=== PATIENT | female | born 1970 | race Caucasian/White ===

== ENCOUNTER 2017-10-14 06:08 | Day surgery (SDC) | payer MEDICARE, MEDICAID ==
[2017-10-14] MEDS ORDERED: Lactated Ringers 1,000 ML IV SCH (06:30)
[2017-10-14] MEDS ORDERED: Bupivacaine 0.5%/EPINEPHrine 1:200,000 50 ML MDV ONE (07:18)
[2017-10-14] MEDS ORDERED: fentaNYL 100 MCG/2 ML SDV ONE (07:20)
[2017-10-14] MEDS ORDERED: Midazolam 1 MG/ML 2 ML SDV ONE (07:20)
[2017-10-14] MEDS ORDERED: Propofol 200 MG/20 ML SDV ONE ×2 (07:20→07:54)
[2017-10-14] MEDS ORDERED: Acetaminophen/HYDROcodone 325-5 MG Tab PO PRN (09:05)
== END 2017-10-14 10:09 | disposition home or self-care (01) ==
LOC: JP.SDS 06:08
PROVIDERS: ATTEND Obstetrics & Gynecology
DX: N92.0 Excessive and frequent menstruation with regular cycle (principal); I10 Essential (primary) hypertension; E78.5 Hyperlipidemia, unspecified; Z79.899 Other long term (current) drug therapy; Z88.0 Allergy status to penicillin; Z88.2 Allergy status to sulfonamides; Z88.8 Allergy status to other drugs, medicaments and biological substances
CPT/HCPCS: 36415; 58563; 81025; 86850; 86900; 86901; A9270; J2250; J2704; J3010; J7120

== ENCOUNTER 2019-10-23 19:23 | Emergency (ER) | payer MEDICARE, MEDICAID ==
[2019-10-23] MEDS ORDERED: Lactated Ringers 1,000 ML IV ONE (20:22)
[2019-10-23] MEDS ORDERED: Sodium Chloride 0.9% 10 ML Syringe FLUSH PRN (20:22)
[2019-10-23] MEDS ORDERED: Prochlorperazine 10 MG/2 ML SDV IVPUSH ONE (20:22)
[2019-10-23] MEDS ORDERED: diphenhydrAMINE 50 MG/ML SDV IVPUSH ONE (20:22)
[2019-10-23] MEDS ORDERED: Ketorolac 30 MG/ML SDV IVPUSH ONE (20:23)
--- NOTE | 2019-10-23 20:25 | EDM.PDOC ---
ED HPI GENERAL MEDICAL PROBLEM - General Chief Complaint: Headache Stated Complaint: MIGRAINE,DIZZY Time Seen by Provider: 10/23/19 20:15 Source of Information: Reports: Patient, Family, RN Notes Reviewed History Limitations: Reports: No Limitations - History of Present Illness INITIAL COMMENTS - FREE TEXT/NARRATIVE: 49-year-old female presents emergency department with a complaint of a headache , she states had headache for last 4 days felt dizzy nauseated with photophobia does have a remote history of migraines she states this feels similar she has no difficulty walking Treatments HARDWOOD FINISHER: Reports: Other (see below) Other Treatments HARDWOOD FINISHER: none Headache Pain Score (Numeric/FACES): 6 - Related Data Allergies Allergy/AdvReac Type Severity Reaction Status Date / Time etanercept [From Enbrel] Allergy Swelling Verified 10/23/19 20:03 lisinopril Allergy Other Verified 10/23/19 20:03 oxycodone Allergy Hypotension Verified 10/23/19 20:03 Penicillins Allergy Other Verified 10/23/19 20:03 Sulfa (Sulfonamide Allergy Other Verified 10/23/19 20:03 Antibiotics) Home Meds: Home Meds Acetaminophen/HYDROcodone [[place] 325-5 MG] 1 - 2 tab PO Q4H PRN 01/10/17 [ History] Tofacitinib Citrate [Xeljanz] 5 mg PO BID 01/10/17 [History] atorvaSTATin [Lipitor] 20 mg PO BEDTIME 01/10/17 [History] Cyclobenzaprine [Flexeril] 30 mg PO BEDTIME 10/10/17 [History] Potassium Chloride 10 meq PO DAILY 10/10/17 [History] Gabapentin [Neurontin] 1,200 mg PO BEDTIME 06/30/18 [History] Omeprazole Magnesium [Prilosec Otc] 20 mg PO DAILY 06/30/18 [History] Ondansetron [Zofran] 8 mg PO Q8H PRN 06/30/18 [History] traMADol [Ultram] 50 mg PO QID 06/30/18 [History] ALPRAZolam [Alprazolam ER] 0.5 mg PO BEDTIME 10/23/19 [History] Estradiol [Estrace] 1 mg PO DAILY 10/23/19 [History] Triamterene/Hydrochlorothiazid [Triamterene-HCTZ 37.5-25 MG] 1 each PO DAILY 03/06 [History] Past Medical History HEENT History: Reports: Hard of Hearing, Impaired Vision, Otitis Media Cardiovascular History: Reports: High Cholesterol, Hypertension Gastrointestinal History: Reports: GERD ROOM ATTENDANTS History: Reports: Dysfunctional Uterine Bleeding, Neurological History: Reports: Migraines - Infectious Disease History Infectious Disease History: Reports: Chicken Pox - Past Surgical History Head Surgeries/Procedures: Reports: None HEENT Surgical History: Reports: Oral Surgery Cardiovascular Surgical History: Reports: None Respiratory Surgical History: Reports: None Female Surgical History: Reports: None Endocrine Surgical History: Reports: None Musculoskeletal Surgical History: Reports: Arthroscopic Knee, Hip Replacement, Other (See Below) Oncologic Surgical History: Reports: None Dermatological Surgical History: Reports: None Social & Family History - Family History Family Medical History: Noncontributory - Tobacco Use Smoking Status *Q: Never Smoker Second Hand Smoke Exposure: No - Caffeine Use Caffeine Use: Reports: Coffee - Recreational Drug Use Recreational Drug Use: No ED ROS GENERAL - Review of Systems Review Of Systems: See Below Constitutional: Denies: Fever, Chills HEENT: Reports: Eye Pain Respiratory: Reports: No Symptoms Cardiovascular: Reports: No Symptoms GI/Abdominal: Reports: Nausea. Denies: Vomiting : Reports: No Symptoms Musculoskeletal: Reports: No Symptoms Skin: Reports: No Symptoms Neurological: Reports: Dizziness, Headache - Physical Exam Exam: See Below Exam Limited By: No Limitations General Appearance: Alert, WD/WN, No Apparent Distress Eye Exam: Bilateral Eye: EOMI, Normal Fundi, Normal Inspection, PERRL Neck: Normal Inspection, Supple, Non-Tender, Full Range of Motion Respiratory/Chest: No Respiratory Distress, Lungs Clear, Normal Breath Sounds, No Accessory Muscle Use, Chest Non-Tender Cardiovascular: Regular Rate, Rhythm, No Murmur GI/Abdominal: Soft, Non-Tender Course - Vital Signs Last Recorded V/S: Last Vital Signs Temp 97.0 F 10/23/19 19:40 Pulse 102 H 10/23/19 21:27 Resp 14 10/23/19 20:10 BP 119/90 10/23/19 21:27 Pulse Ox 95 10/23/19 20:10 - Orders/Labs/Meds Orders: Active Orders 24 hr Category Date Time Status Peripheral IV Care [RC] . DIRECTED Care 10/23/19 20:23 Active Sodium Chloride 0.9% [Saline Flush] Med 10/23/19 20:22 Active 10 ml FLUSH ASDIRECTED PRN Peripheral IV Insertion Adult [OM.PC] Urgent Oth 10/23/19 20:21 Ordered Medication Orders Sodium Chloride (Saline Flush) 10 ml FLUSH ASDIRECTED PRN PRN Reason: Keep Vein Open Meds: Medications Generic Name Dose Route Start Last Admin Trade Name Freq PRN Reason Stop Dose Admin Sodium Chloride 10 ml 10/23/19 20:22 Saline Flush FLUSH ASDIRECTED PRN Keep Vein Open Discontinued Medications Generic Name Dose Route Start Last Admin Trade Name Freq PRN Reason Stop Dose Admin Diphenhydramine HCl 50 mg 10/23/19 20:22 10/23/19 20:43 Benadryl IVPUSH 10/23/19 20:23 50 mg ONETIME ONE Administration Lactated Ringer's 1,000 mls @ 999 mls/hr 10/23/19 20:22 10/23/19 20:42 Ringers, Lactated IV 10/23/19 21:22 999 mls/hr BOLUS ONE Administration Ketorolac Tromethamine 30 mg 10/23/19 20:23 10/23/19 20:48 Toradol IVPUSH 10/23/19 20:24 30 mg ONETIME ONE Administration Prochlorperazine Edisylate 5 mg 10/23/19 20:22 10/23/19 20:45 Compazine IVPUSH 10/23/19 20:23 5 mg ONETIME ONE Administration Departure - Departure Time of Disposition: 21:40 Disposition: Home, Self-Care 01 Condition: Fair Clinical Impression: Migraine - Discharge Information Instructions: Migraine Headache, [id number] Referrals: Oscar Lyon MD [Primary Care Provider] - Forms: ED Department Discharge Additional Instructions: Continue with regular medications, please followup with your primary care provider in 3-5 days if not better, please call return to the emergency department with worsening of symptoms. Sepsis Event Note - Evaluation Sepsis Screening Result: No Definite Risk - Focused Exam Vital Signs: Vital Signs Temp Pulse Resp BP Pulse Ox 10/23/19 21:27 102 H 119/90 10/23/19 20:10 124 H 14 128/93 H 95 10/23/19 20:09 123 H 128/93 H 95 10/23/19 19:40 97.0 F 137 H 16 145/97 H 95 Date Exam was Performed: 10/23/19 Time Exam was Performed: 21:40 - My Orders Last 24 Hours: My Active Orders 10/23/19 20:21 Peripheral IV Insertion Adult [OM.PC] Urgent 10/23/19 20:22 Sodium Chloride 0.9% [Saline Flush] 10 ml FLUSH ASDIRECTED PRN 10/23/19 20:23 Peripheral IV Care [RC] . DIRECTED - Assessment/Plan Last 24 Hours: My Active Orders 10/23/19 20:21 Peripheral IV Insertion Adult [OM.PC] Urgent 10/23/19 20:22 Sodium Chloride 0.9% [Saline Flush] 10 ml FLUSH ASDIRECTED PRN 10/23/19 20:23 Peripheral IV Care [RC] . DIRECTED Plan: Assessment Acuity = acute Site and laterality = migraine type headache without aura Etiology = unknown Manifestations = none Location of injury = Home Lab values = none Plan Good improvement combination Toradol, Compazine, Benadryl 1 L fluids, plan is discharged home follow-up primary care 3 to 5 days if not better This note was dictated using [employer] recognition software please call with any questions on syntax or grammar.
== END 2019-10-23 21:50 | disposition home or self-care (01) ==
LOC: JP.ED 19:23
DX: G43.009 Migraine without aura, not intractable, without status migrainosus (principal); I10 Essential (primary) hypertension; K21.9 Gastro-esophageal reflux disease without esophagitis; Z79.899 Other long term (current) drug therapy; Z98.890 Other specified postprocedural states; Z88.0 Allergy status to penicillin; Z88.2 Allergy status to sulfonamides; Z88.6 Allergy status to analgesic agent; Z88.8 Allergy status to other drugs, medicaments and biological substances
CPT/HCPCS: 96361; 96374; 96375; 99283; 99284; J0780; J1200; J1885; J7120

== ENCOUNTER 2021-01-06 02:27 | Emergency (ER) | payer MEDICARE, MEDICAID ==
[2021-01-06] MEDS ORDERED: Bacitracin Oint 1 GM U/D Packet TOP ONE (03:09)
[2021-01-06] MEDS ORDERED: Lidocaine 1% with EPINEPHrine 1:100,000 50 ML MDV INFILT STA (03:09)
--- NOTE | 2021-01-06 03:22 | EDM.PDOC ---
ED HPI GENERAL MEDICAL PROBLEM - General Chief Complaint: Syncope Stated Complaint: PASSED OUT/MEDICAL Time Seen by Provider: 01/06/21 03:01 Source of Information: Reports: Patient, Old Records History Limitations: Reports: No Limitations - History of Present Illness INITIAL COMMENTS - FREE TEXT/NARRATIVE: Mendy is a 50-year-old female presenting to the ED with multiple complaints including an episode of syncope that occurred when she was knocking on her daughter's door and passed out striking her face either on the door handle or the floor causing a laceration above her right eyebrow and lower lip. The patient was unconscious for a short period of time but now is complaining of a headache and neck pain. Patient does have recent history of work-up both that [place] and [facility] in [place] for syncope. She is undergoing a extensive evaluation for abnormal pulmonary function tests, dyspnea on exertion, class II severe obesity, essential hypertension and mixed hyperlipidemia. She does have a history significant for coronary artery disease and gets chest pain 1-3 times per week. She had a left heart cath that showed nonobstructive coronary disease. She has legally blind in both eyes. Her fall today resulted in a 3.6 cm laceration above the right eyebrow. There is no active bleeding at this time. Right Face/Facial Pain Score (Numeric/FACES): 9 - Related Data Allergies Allergy/AdvReac Type Severity Reaction Status Date / Time clindamycin Allergy Diarrhea Verified 01/06/21 02:45 etanercept [From Enbrel] Allergy Swelling Verified 10/24/20 09:29 hydrocodone Allergy Vomiting Verified 01/06/21 02:45 lisinopril Allergy Other Verified 10/24/20 09:29 oxycodone Allergy Hypotension Verified 10/24/20 09:29 Penicillins Allergy Other Verified 10/24/20 09:29 Sulfa (Sulfonamide Allergy Other Verified 10/24/20 09:29 Antibiotics) Home Meds: Home Meds atorvaSTATin [Lipitor] 20 mg PO BEDTIME 01/10/17 [History] Cyclobenzaprine [Flexeril] 10 mg PO BEDTIME 10/10/17 [History] Potassium Chloride 20 meq PO DAILY 10/10/17 [History] Gabapentin [Neurontin] 1,200 mg PO BEDTIME 06/30/18 [History] Omeprazole Magnesium [Prilosec Otc] 40 mg PO DAILY 06/30/18 [History] traMADol [Ultram] 50 mg PO QID PRN 06/30/18 [History] ALPRAZolam [Alprazolam ER] 1.5 mg PO TID 10/23/19 [History] estradioL [Estrace] 1 mg PO DAILY 10/23/19 [History] Aspirin [Halfprin] 81 mg PO DAILY 10/23/20 [History] Promethazine [Phenergan] 25 mg PO Q6HR PRN 10/23/20 [History] Venlafaxine [Effexor] 75 mg PO BID 10/23/20 [History] amLODIPine Besylate [Norvasc] 2.5 mg PO DAILY 10/23/20 [History] Verapamil [Calan SR] 240 mg PO BEDTIME 10/24/20 [History] Rizatriptan [Maxalt MINES SAFETY ENGINEER] 1 tab SL ASDIRECTED 01/06/21 [History] Past Medical History HEENT History: Reports: Hard of Hearing, Impaired Vision, Otitis Media Other HEENT History: legally deaf and blind Cardiovascular History: Reports: Arrhythmia, CAD, High Cholesterol, Hypertension, Syncope, Other (See Below) Other Cardiovascular History: 2 mildly leaky valves Respiratory History: Reports: None, Sleep Apnea, SOB, Other (See Below) Other Respiratory History: calcifications lung nodules throughout lungs, pt does have home oxygen for at night Gastrointestinal History: Reports: GERD Genitourinary History: Reports: None CONTENT EDITOR History: Reports: Dysfunctional Uterine Bleeding, Musculoskeletal History: Reports: None, Fibromyalgia, Osteoarthritis, RA, Other (See Below) Neurological History: Reports: Migraines Psychiatric History: Reports: Anxiety, Depression Endocrine/Metabolic History: Reports: Hypokalemia, Obesity/BMI 30+ Hematologic History: Reports: None Immunologic History: Reports: None Oncologic (Cancer) History: Reports: None Dermatologic History: Reports: None - Infectious Disease History Infectious Disease History: Reports: C-Difficile, Chicken Pox, Influenza, MRSA - Past Surgical History Head Surgeries/Procedures: Reports: None HEENT Surgical History: Reports: Oral Surgery Cardiovascular Surgical History: Reports: None, Other (See Below) Other Cardiovascular Surgeries/Procedures: angiogram, Respiratory Surgical History: Reports: None GI Surgical History: Reports: None Female Surgical History: Reports: None, Hysterectomy, Oophorectomy, Salpingo- Oophorectomy Endocrine Surgical History: Reports: None Neurological Surgical History: Reports: None Musculoskeletal Surgical History: Reports: Arthroscopic Knee, Hip Replacement, Other (See Below) Other Musculoskeletal Surgeries/Procedures:: surgery right ankle left hip01/2018 bunion right04/2018 Oncologic Surgical History: Reports: None Dermatological Surgical History: Reports: None Social & Family History - Family History Family Medical History: No Pertinent Family History - Tobacco Use Tobacco Use Status *Q: Never Tobacco User - Caffeine Use Caffeine Use: Reports: Soda - Recreational Drug Use Recreational Drug Use: No ED ROS GENERAL - Review of Systems Review Of Systems: See Below Constitutional: Reports: No Symptoms HEENT: Reports: Vision Change (Patient is legally blind), Other (Laceration above the right eyebrow) Respiratory: Reports: No Symptoms Cardiovascular: Reports: Syncope Endocrine: Reports: No Symptoms GI/Abdominal: Reports: No Symptoms : Reports: No Symptoms Musculoskeletal: Reports: No Symptoms Skin: Reports: Wound (Laceration above the right eyebrow) Neurological: Reports: Syncope Psychiatric: Reports: No Symptoms Hematologic/Lymphatic: Reports: No Symptoms Immunologic: Reports: No Symptoms - Physical Exam Exam: See Below Exam Limited By: No Limitations General Appearance: Alert, Mild Distress Eye Exam: Bilateral Eye: Other (There is a 3.6 cm laceration above the right eyebrow that it widely gapes and goes through the dermis, epidermis, muscular layer down to the skull.) Nose: Other (Abrasion on the bridge of the nose.). No: Nasal Deformity, Nasal Swelling Throat/Mouth: Normal Inspection, Normal Lips, Normal Oropharynx, Normal Voice Head Exam: Facial Lacerations Neck: Normal Inspection, Tender Lateral. No: Tender Midline Respiratory/Chest: No Respiratory Distress, Lungs Clear Cardiovascular: Normal Peripheral Pulses, Regular Rate, Rhythm GI/Abdominal: Normal Bowel Sounds, Soft, Non-Tender Neuro Exam (Abbreviated): Alert, Oriented, Normal Cognition, No Motor/Sensory Deficits Extremities: Normal Inspection Psychiatric: Normal Affect, Normal Mood Skin Exam: Warm, Dry ED PROCEDURES - Laceration/Wound Repair Left Upper Brow Lac/wound length in cm: 3.6 Appearance: Muscle Anesthetic Type: Local Local Anesthesia - Lidocaine (Xylocaine): 1% with EPI Local Anesthetic Volume: 3cc Skin Prep: Saline Exploration/Debridement/Repair: Wound Explored, In a Bloodless Field, Explored to Base Suture Size: 4-0 # of Sutures: 9 Suture Type: Nylon, Interrupted # of Sutures: 3 Suture Size: 4-0 # of Sutures: 3 Repaired with: Vicryl Tetanus Status Addressed: Yes Complications: No #1 Interpretation EKG Date: 01/06/21 Time: 03:21 Rhythm: NSR Rate (Beats/Min): 84 [place]: Normal P-Wave: Present QRS: Other (LVH by voltage criteria) ST-T: Normal (Nonspecific ST-T changes) QT: Normal Comparison: NA - No Prior EKG Course - Vital Signs Last Recorded V/S: Last Vital Signs Temp 36.6 C 01/06/21 02:58 Pulse 89 01/06/21 02:58 Resp 20 01/06/21 02:58 BP 120/81 01/06/21 02:58 Pulse Ox 97 01/06/21 02:58 - Orders/Labs/Meds Orders: Active Orders 24 hr Category Date Time Status EKG Documentation Completion [RC] ASDIRECTED Care 01/06/21 03:11 Active Vaccines to be Administered [RC] PER UNIT ROUTINE Care 01/06/21 04:25 Active EKG 12 Lead [EK] Routine Ther 01/06/21 03:11 Ordered Labs: Laboratory Tests 01/06/21 01/06/21 Range/Units 03:20 03:20 WBC 10.7 (4.5-11.0) K/uL RBC 4.30 (3.30-5.50) M/uL Hgb 10.5 L (12.0-15.0) g/dL Hct 34.0 L (36.0-48.0) % MCV 79 L (80-98) fL MCH 24 L (27-31) pg MCHC 31 L (32-36) % Plt Count 385 (150-400) K/uL Neut % (Auto) 74.3 H (36-66) % Lymph % (Auto) 16.3 L (24-44) % Harvey % (Auto) 7.3 H (2-6) % Eos % (Auto) 1.4 L (2-4) % Baso % (Auto) 0.7 (0-1) % Sodium 144 (140-148) mmol/L Potassium 3.3 L (3.6-5.2) mmol/L Chloride 103 (100-108) mmol/L Carbon Dioxide 30 (21-32) mmol/L Anion Gap 14.3 H (5.0-14.0) mmol/L BUN 14 (7-18) mg/dL Creatinine 1.1 H (0.6-1.0) mg/dL Est Cr Clr Drug Dosing 61.72 mL/min Estimated GFR (MDRD) 53 L (>60) Glucose 127 H (74-106) mg/dL Calcium 8.3 L (8.5-10.1) mg/dL Total Bilirubin 0.3 (0.2-1.0) mg/dL AST 15 (15-37) U/L ALT 21 (12-78) U/L Alkaline Phosphatase 146 H (46-116) U/L Troponin I < 0.017 (0.000-0.056) ng/mL Total Protein 7.0 (6.4-8.2) g/dL Albumin 2.6 L (3.4-5.0) g/dL Globulin 4.4 H (2.3-3.5) g/dL Albumin/Globulin Ratio 0.6 L (1.2-2.2) Meds: Medications Discontinued Medications Generic Name Dose Route Start Last Admin Trade Name Freq PRN Reason Stop Dose Admin Bacitracin 1 dose 01/06/21 03:09 01/06/21 03:21 Bacitracin Oint 1 Gm U/D Packet TOP 01/06/21 03:10 1 dose ONETIME ONE Administration Diphtheria/Tetanus/Acell Pertussis 0.5 ml 01/06/21 04:25 01/06/21 04:36 Diphtheria,Pertussis(Acell),Tetanus Vaccine 0.5 Ml Syringe IM 01/06/21 04:26 0.5 ml .ONCE ONE Administration Lidocaine/Epinephrine 5 ml 01/06/21 03:09 01/06/21 03:22 Lidocaine 1% With Epinephrine 1:100,000 50 Ml Mdv INFILT 01/06/21 03:10 5 ml ONETIME STA Administration Potassium Chloride 40 meq 01/06/21 04:28 01/06/21 04:37 Potassium Chloride 20 Meq Tab.Er PO 01/06/21 04:29 40 meq ONETIME ONE Administration - Radiology Interpretation Free Text/Narrative:: The CT of the head without contrast showing no acute intracranial abnormalities including no evidence for hemorrhage, mass, or midline shift. There is no evidence for cranial abnormality ruling out any acute fracture. This was confirmed by report from radiology. I reviewed the CT of the cervical spine showing degenerative changes at C4/C5 causing loss of lordosis. There is no evidence for acute fracture or malalignment otherwise noted. - Re-Assessments/Exams Free Text/Narrative Re-Assessment/Exam: 01/06/21 04:30 reviewed the patient's labs showing hemoglobin of 10.5 with hematocrit of 34. She has normal leukocyte count. Her comprehensive metabolic panel is significant for a potassium of 3.3 and a creatinine of 1.1. She still showing evidence for stage IIIa chronic kidney disease with a calculated GFR of 53. On and is negative at less than 0.017. We will give her some K-Kita 40 mEq by mouth for her hypokalemia. Her EKG is unremarkable for any significant abnormalities except for left ventricular hypertrophy by voltage criteria. Her tetanus was out of date so we booster that with a Tdap today. 01/06/21 06:[address] of the brain without contrast demonstrating no acute intracranial abnormalities including hemorrhage, mass, or midline shift. The CT of the cervical spine showed degenerative changes at C4- C5 but no evidence for acute abnormalities. At this time, I believe the patient is suitable for discharge in satisfactory condition. Couple episode was likely vasovagal in nature. Patient should continue to remain well-hydrated to lessen the recurrence of this. We were able to close the wound on the right eyebrow using a 2 layer approach. She will need to have the sutures removed in 5 to 7 days which can be done at her primary care provider's office. She should apply light coating of bacitracin to the wound twice daily for the next 5 days. Indications return to the ED were discussed and she was discharged in satisfactory condition. Departure - Departure Time of Disposition: 06:05 Disposition: Home, Self-Care 01 Clinical Impression: Vasovagal syncope, Neck pain Laceration of right eyebrow Qualifiers: Encounter type: initial encounter Qualified Code(s): S01.111A - Laceration without foreign body of right eyelid and periocular area, initial encounter Closed head injury Qualifiers: Encounter type: initial encounter Qualified Code(s): S09.90XA - Unspecified injury of head, initial encounter - Discharge Information Instructions: Head Injury, Adult, Syncope, [id number], Laceration Care, Adult, [id number], Facial Laceration Referrals: Oscar Lyon MD [Primary Care Provider] - Forms: ED Department Discharge Care Plan Goals: Your work-up today has suggested that your episode of syncope (blacking out) was likely due to a sudden drop in your blood pressure called vasovagal syncope. I have enclosed information concerning this. I recommend making sure that she remain well-hydrated as this will lessen the likelihood of recurrence of this. Your labs today were remarkable for chronic kidney disease stage IIIa and low potassium which we replaced while in the ER. Your CT of the head and cervical spine were unremarkable for any acute significant changes but it did show significant degenerative changes in the middle of your cervical spine likely due to arthritis. Please keep your wound clean and dry especially over the next 24 hours until the scab forms. The sutures will need to be removed from the skin in 5 to 7 days which can be done at your primary care provider's office. Apply a light coating of bacitracin to the wound twice a day which will lessen the scar and prevent infection. You will likely have a headache for a day or 2 due to the closed head injury otherwise known as concussion. I recommend taking it easy until your headache subsides. Sepsis Event Note (ED) - Evaluation Sepsis Screening Result: No Definite Risk - Focused Exam Vital Signs: Vital Signs Temp Pulse Resp BP Pulse Ox 01/06/21 02:58 36.6 C 89 20 120/81 97 01/06/21 02:56 36.6 C 89 20 120/81 97 - Problem List & Annotations (1) Closed head injury SNOMED Code(s): 813729847384 Code(s): S09.90XA - UNSPECIFIED INJURY OF HEAD, INITIAL ENCOUNTER Status: Acute Priority: High Current Visit: Yes Qualifiers: Encounter type: initial encounter Qualified Code(s): S09.90XA - Unspecified injury of head, initial encounter (2) Laceration of right eyebrow SNOMED Code(s): 92743227321521088 Code(s): S01.111A - LACERATION W/O FB OF RIGHT EYELID AND PERIOCULAR AREA, INIT Status: Acute Priority: High Current Visit: Yes Qualifiers: Encounter type: initial encounter Qualified Code(s): S01.111A - Laceration without foreign body of right eyelid and periocular area, initial encounter (3) Neck pain SNOMED Code(s): 07463660 Code(s): M54.2 - CERVICALGIA Status: Acute Priority: High Current Visit: Yes (4) Vasovagal syncope SNOMED Code(s): 647174373 Code(s): R55 - SYNCOPE AND COLLAPSE Status: Acute Priority: High Current Visit: Yes - Problem List Review Problem List Initiated/Reviewed/Updated: Yes - My Orders Last 24 Hours: My Active Orders 01/06/21 03:11 EKG Documentation Completion [RC] ASDIRECTED EKG 12 Lead [EK] Routine 01/06/21 04:25 Vaccines to be Administered [RC] PER UNIT ROUTINE - Assessment/Plan Last 24 Hours: My Active Orders 01/06/21 03:11 EKG Documentation Completion [RC] ASDIRECTED EKG 12 Lead [EK] Routine 01/06/21 04:25 Vaccines to be Administered [RC] PER UNIT ROUTINE
[2021-01-06] MEDS ORDERED: Diphtheria,Pertussis(Acell),Tetanus Vaccine 0.5 ML Syringe IM ONE (04:25)
[2021-01-06] MEDS ORDERED: Potassium Chloride 20 MEQ Tab.ER PO ONE (04:28)
--- NOTE | 2021-01-06 05:56 | CRLCT ---
Indication: Head injury, syncope, trauma when hitting the floor. Comparison: None available. Technique: Multiple sequential axial images from the foramen magnum to the vertex were obtained without IV contrast. Findings: No skull fracture. No evidence of mass effect, midline shift, or extra-axial fluid collection. No evidence of space-occupying lesion or intracranial hemorrhage. No evidence of cortical-based area of infarction. Ventricles and sulci are appropriate for patient age. Basal cisterns are patent. Minimal secretions in the ethmoid air cells. Opacities in the external auditory canal bilaterally presumably represents cerumen. Impression: No acute intracranial process. Please note that all CT scans at this facility use dose modulation, iterative reconstruction, and/or weight-based dosing when appropriate to reduce radiation dose to as low as reasonably achievable. Dictated by Michael Jacobo MD @ 01/06/2021 5:48:24 AM (Electronically Signed)
--- NOTE | 2021-01-06 05:58 | CRLCT ---
Indication: Neck pain after fall. Syncopal episode, and hit the floor. Technique: Contiguous axial images from the skull base through the superior mediastinum were obtained with coronal and sagittal reformations. No IV contrast was administered. Comparison: None available. Findings: No acute fracture of the cervical spine. Multilevel mild degenerative change most notably at C4 through C7. Minimal (2 mm) anterolisthesis of C4 on C5. Soft tissues appear unremarkable. Mild reversal of the normal lordotic curvature. Atlantooccipital articulation is normal. Lateral masses appear normally aligned. Pre-dental space appears normal. Impression: No acute fracture of the cervical spine. Minimal anterolisthesis of C4 on C5 which is favored to be degenerative in etiology, however correlate with symptoms to determine if further evaluation would be warranted. Please note that all CT scans at this facility use dose modulation, iterative reconstruction, and/or weight-based dosing when appropriate to reduce radiation dose to as low as reasonably achievable. Dictated by Michael Jacobo MD @ 01/06/2021 5:55:13 AM (Electronically Signed)
== END 2021-01-06 06:24 | disposition home or self-care (01) ==
LOC: JP.ED 02:27
DX: S01.111A Laceration without foreign body of right eyelid and periocular area, initial encounter (principal); S09.90XA Unspecified injury of head, initial encounter; M54.2 Cervicalgia; R55 Syncope and collapse; I25.10 Atherosclerotic heart disease of native coronary artery without angina pectoris; E78.00 Pure hypercholesterolemia, unspecified; I10 Essential (primary) hypertension; K21.9 Gastro-esophageal reflux disease without esophagitis; M06.9 Rheumatoid arthritis, unspecified; E66.9 Obesity, unspecified; Z68.39 Body mass index [BMI] 39.0-39.9, adult; Z88.1 Allergy status to other antibiotic agents; Z88.5 Allergy status to narcotic agent; Z88.8 Allergy status to other drugs, medicaments and biological substances; Z88.0 Allergy status to penicillin; Z88.2 Allergy status to sulfonamides; Z79.899 Other long term (current) drug therapy; Z23 Encounter for immunization; W22.8XXA Striking against or struck by other objects, initial encounter
CPT/HCPCS: 12052; 36415; 70450; 72125; 80053; 84484; 85025; 90471; 90715; 93005; 99284; A9270

== ENCOUNTER 2021-08-20 15:03 | Emergency (ER) | payer MEDICARE, MEDICAID ==
[2021-08-20] MEDS ORDERED: EPINEPHrine 1 MG/ML SDV IM ONE (15:37)
[2021-08-20] MEDS ORDERED: Ondansetron 4 MG/2 ML SDV IVPUSH ONE (15:39)
--- NOTE | 2021-08-20 15:41 | EDM.PDOC ---
ED HPI GENERAL MEDICAL PROBLEM - General Stated Complaint: ALLERGIC REACTION Time Seen by Provider: 08/20/21 15:23 Source of Information: Reports: Patient, Provider, RN Notes Reviewed History Limitations: Reports: No Limitations - History of Present Illness INITIAL COMMENTS - FREE TEXT/NARRATIVE: 51-year-old female presents emergency department today for an allergic reaction, she was at the infusion center receiving a dose of Remicade she did have a similar reaction last year however this year was given a dose about 2 weeks ago seem to work well for her at this particular dose she received 15 mL of the 250 mL dose started having reaction shortness of breath chest tightness difficulty swallowing was given Solu-Cortef, Benadryl, Pepcid, Zyrtec taken to the emergency department for further evaluation still feels nauseated Chest Pain Score (Numeric/FACES): 4 - Related Data Allergies Allergy/AdvReac Type Severity Reaction Status Date / Time etanercept [From Enbrel] Allergy Swelling Verified 08/20/21 16:09 lisinopril Allergy Other Verified 08/20/21 16:09 oxycodone Allergy Hypotension Verified 08/20/21 16:09 Penicillins Allergy Other Verified 08/20/21 16:09 Sulfa (Sulfonamide Allergy Other Verified 08/20/21 16:09 Antibiotics) clindamycin AdvReac Diarrhea Verified 08/20/21 16:09 hydrocodone AdvReac Vomiting Verified 08/20/21 16:09 Home Meds: Home Meds atorvaSTATin [Lipitor] 20 mg PO BEDTIME 01/10/17 [History] Cyclobenzaprine [Flexeril] 10 mg PO BEDTIME 10/10/17 [History] Potassium Chloride 10 meq PO DAILY 10/10/17 [History] Gabapentin [Neurontin] 1,200 mg PO BEDTIME 06/30/18 [History] Omeprazole Magnesium [Prilosec Otc] 40 mg PO DAILY 06/30/18 [History] traMADol [Ultram] 50 mg PO QID PRN 06/30/18 [History] ALPRAZolam [Alprazolam ER] 1 mg PO BEDTIME 10/23/19 [History] Aspirin [Halfprin] 81 mg PO DAILY 10/23/20 [History] Promethazine [Phenergan] 25 mg PO Q6HR PRN 10/23/20 [History] Venlafaxine [Effexor] 75 mg PO BID 10/23/20 [History] amLODIPine Besylate [Norvasc] 2.5 mg PO DAILY 10/23/20 [History] Verapamil [Calan SR] 240 mg PO BEDTIME 10/24/20 [History] HCTZ/Triamterene [Maxzide 25-37.5 MG] 1 tab PO DAILY 07/16/21 [History] Past Medical History HEENT History: Reports: Hard of Hearing, Impaired Vision, Otitis Media Other HEENT History: legally deaf and blind Cardiovascular History: Reports: Arrhythmia, CAD, High Cholesterol, Hypertension, Syncope, Other (See Below) Other Cardiovascular History: 2 mildly leaky valves Respiratory History: Reports: Sleep Apnea, SOB, Other (See Below) Other Respiratory History: calcifications lung nodules throughout lungs, pt does have home oxygen for at night Gastrointestinal History: Reports: GERD [employer] History: Reports: Dysfunctional Uterine Bleeding, Musculoskeletal History: Reports: Fibromyalgia, Osteoarthritis, RA, Other (See Below) Neurological History: Reports: Migraines Psychiatric History: Reports: Anxiety, Depression Endocrine/Metabolic History: Reports: Hypokalemia, Obesity/BMI 30+ Hematologic History: Reports: None Immunologic History: Reports: None Oncologic (Cancer) History: Reports: None Dermatologic History: Reports: None - Infectious Disease History Infectious Disease History: Reports: C-Difficile, Chicken Pox, Influenza, MRSA - Past Surgical History Head Surgeries/Procedures: Reports: None HEENT Surgical History: Reports: Oral Surgery Cardiovascular Surgical History: Reports: None, Other (See Below) Other Cardiovascular Surgeries/Procedures: angiogram, Respiratory Surgical History: Reports: None GI Surgical History: Reports: None Female Surgical History: Reports: None, Hysterectomy, Oophorectomy, Salpingo-Oophorectomy Endocrine Surgical History: Reports: None Neurological Surgical History: Reports: None Musculoskeletal Surgical History: Reports: Arthroscopic Knee, Hip Replacement, Other (See Below) Other Musculoskeletal Surgeries/Procedures:: surgery right ankle left hip01/2018 bunion right04/2018 Oncologic Surgical History: Reports: None Dermatological Surgical History: Reports: None Social & Family History - Family History Family Medical History: No Pertinent Family History - Caffeine Use Caffeine Use: Reports: Soda ED ROS GENERAL - Review of Systems Review Of Systems: See Below Constitutional: Reports: No Symptoms HEENT: Reports: Throat Pain, Throat Swelling Respiratory: Reports: Shortness of Breath Cardiovascular: Reports: Chest Pain, Dyspnea on Exertion GI/Abdominal: Reports: Nausea ED EXAM, GENERAL - Physical Exam Exam: See Below Exam Limited By: No Limitations General Appearance: Alert, WD/WN, No Apparent Distress Throat/Mouth: Normal Inspection, Normal Lips, Normal Teeth, Normal Gums, Normal Oropharynx, Normal Voice, No Airway Compromise Respiratory/Chest: No Respiratory Distress, Lungs Clear, Normal Breath Sounds, No Accessory Muscle Use, Chest Non-Tender Cardiovascular: Regular Rate, Rhythm, No Murmur GI/Abdominal: Soft, Non-Tender Course - Vital Signs Last Recorded V/S: Last Vital Signs Temp 98.2 F 08/20/21 15:25 Pulse 116 H 08/20/21 16:50 Resp 17 08/20/21 16:50 BP 114/57 L 08/20/21 16:50 Pulse Ox 93 L 08/20/21 16:50 - Orders/Labs/Meds Orders: Active Orders 24 hr Category Date Time Status Potassium Chloride 20 meq Med 08/20/21 17:30 Active Lidocaine 1% [Xylocaine 1%] 2 ml Sodium Chloride 0.9% [Normal Saline] 100 ml IV ONETIME Medication Orders Potassium Chloride 20 meq/Lidocaine HCl 2 ml/ Sodium Chloride 112 mls @ 56 mls/hr IV ONETIME ONE Stop: 08/20/21 19:29 Last Admin: 08/20/21 17:34 Dose: 56 mls/hr Documented by: ANGELA Labs: Laboratory Tests 08/20/21 08/20/21 08/20/21 Range/Units 15:49 15:49 15:49 WBC 16.5 H (4.5-11.0) K/uL RBC 4.62 (3.30-5.50) M/uL Hgb 12.4 (12.0-15.0) g/dL Hct 36.8 (36.0-48.0) % MCV 80 (80-98) fL MCH 27 (27-31) pg MCHC 34 (32-36) % Plt Count 333 (150-400) K/uL Neut % (Auto) 94.7 H (36-66) % Lymph % (Auto) 2.5 L (24-44) % Bradford % (Auto) 2.6 (2-6) % Eos % (Auto) 0.1 L (2-4) % Baso % (Auto) 0.1 (0-1) % Sodium 140 (140-148) mmol/L Potassium 2.8 L* (3.6-5.2) mmol/L Chloride 101 (100-108) mmol/L Carbon Dioxide 26 (21-32) mmol/L Anion Gap 15.8 H (5.0-14.0) mmol/L BUN 16 (7-18) mg/dL Creatinine 1.4 H (0.6-1.0) mg/dL Est Cr Clr Drug Dosing 47.96 mL/min Estimated GFR (MDRD) 40 L (>60) Glucose 153 H (74-106) mg/dL Calcium 9.0 (8.5-10.1) mg/dL Troponin I High Sens 6.4 (<=60.3) pg/mL Meds: Medications Generic Name Dose Route Start Last Admin Trade Name Freq PRN Reason Stop Dose Admin Potassium Chloride 20 meq/ 112 mls @ 56 mls/hr 08/20/21 17:30 08/20/21 17:34 Lidocaine HCl 2 ml/ Sodium IV 08/20/21 19:29 56 mls/hr Chloride ONETIME ONE Administration Discontinued Medications Generic Name Dose Route Start Last Admin Trade Name Freq PRN Reason Stop Dose Admin Epinephrine HCl 0.3 mg 08/20/21 15:37 08/20/21 16:00 Epinephrine 1 Mg/Ml Sdv IM 08/20/21 15:38 0.3 mg ONETIME ONE Administration Ondansetron HCl 4 mg 08/20/21 15:39 08/20/21 16:01 Ondansetron 4 Mg/2 Ml Sdv IVPUSH 08/20/21 15:40 4 mg ONETIME ONE Administration Potassium Chloride 40 meq 08/20/21 16:42 08/20/21 17:08 Potassium Chloride 20 Meq Tab.Er PO 08/20/21 16:43 40 meq ONETIME ONE Administration Departure - Departure Time of Disposition: 17:57 Disposition: Home, Self-Care 01 Condition: Fair Clinical Impression: Allergic reaction Qualifiers: Encounter type: initial encounter Qualified Code(s): T78.40XA - Allergy, u nspecified, initial encounter - Discharge Information Instructions: Allergies, Adult Referrals: PCP,None [Primary Care Provider] - Additional Instructions: Continue with your regular medications, keep your follow-up appointment with your primary care provider call return to the emergency department worsening of symptoms Sepsis Event Note (ED) - Focused Exam Vital Signs: Vital Signs Temp Pulse Resp BP Pulse Ox 08/20/21 16:50 116 H 17 114/57 L 93 L 08/20/21 16:20 117 H 20 104/57 L 93 L 08/20/21 15:25 98.2 F 111 H 22 H 132/86 96 08/20/21 15:05 98.2 F 111 H 22 H 132/86 96 - My Orders Last 24 Hours: My Active Orders 08/20/21 17:30 Potassium Chloride 20 meq Lidocaine 1% [Xylocaine 1%] 2 ml Sodium Chloride 0.9% [Normal Saline] 100 ml IV ONETIME - Assessment/Plan Last 24 Hours: My Active Orders 08/20/21 17:30 Potassium Chloride 20 meq Lidocaine 1% [Xylocaine 1%] 2 ml Sodium Chloride 0.9% [Normal Saline] 100 ml IV ONETIME Plan: Assessment Acuity = acute Site and laterality = allergic reaction Etiology = Remicade Manifestations = none Location of injury = Home Lab values = WBC elevated at 16.5 consistent leukocytosis, potassium low at 2.8 consistent hypokalemia creatinine elevated 1.4 consistent chronic renal failure stage G3 B Plan She had good relief of symptoms with 0.3 mg epinephrine her potassium was replaced in the emergency department she stayed for about 4 hours have her follow-up with her primary care for further evaluation recommend no more Remicade This note was dictated using [employer] voice recognition software please call with any questions on syntax or grammar.
[2021-08-20] MEDS ORDERED: Potassium Chloride 20 MEQ in Premix Bag 1 BAG IV ONE (16:42)
[2021-08-20] MEDS ORDERED: Potassium Chloride 20 MEQ Tab.ER PO ONE (16:42)
[2021-08-20] MEDS ORDERED: Potassium Chloride 20 MEQ, Lidocaine 1% 2 ML in Sodium Chloride 0.9% 100 ML IV ONE (17:30)
== END 2021-08-20 19:48 | disposition home or self-care (01) ==
LOC: JP.ED 15:03
DX: R06.02 Shortness of breath (principal); T39.8X5A Adverse effect of other nonopioid analgesics and antipyretics, not elsewhere classified, initial encounter; I25.10 Atherosclerotic heart disease of native coronary artery without angina pectoris; E78.00 Pure hypercholesterolemia, unspecified; I10 Essential (primary) hypertension; K21.9 Gastro-esophageal reflux disease without esophagitis; M19.90 Unspecified osteoarthritis, unspecified site; E66.9 Obesity, unspecified; Z68.38 Body mass index [BMI] 38.0-38.9, adult; Z88.0 Allergy status to penicillin; Z88.2 Allergy status to sulfonamides; Z88.1 Allergy status to other antibiotic agents; Z88.5 Allergy status to narcotic agent; Z79.899 Other long term (current) drug therapy; Z79.82 Long term (current) use of aspirin
CPT/HCPCS: 36415; 80048; 84484; 85025; 96365; 96366; 96372; 96375; 99283; A9270; J0171; J2001; J2405; J3480

== ENCOUNTER 2021-12-24 17:44 | Emergency (ER) | payer MEDICARE, MEDICAID ==
[2021-12-24] MEDS ORDERED: Potassium Chloride 20 MEQ Tab.ER PO ONE (18:32)
[2021-12-24] MEDS ORDERED: Sodium Chloride 0.9% 10 ML Syringe FLUSH PRN (18:32)
[2021-12-24] MEDS ORDERED: Potassium Chloride 20 MEQ in Premix Bag 1 BAG IV ONE (18:32)
[2021-12-24] MEDS ORDERED: Lidocaine 1% 5 ML VIAL INJECT ONE (18:53)
[2021-12-24] MEDS ORDERED: Magnesium Oxide 400 MG Tab PO STA (19:22)
== END 2021-12-24 22:35 | disposition home or self-care (01) ==
LOC: JP.ED 17:44
DX: E87.6 Hypokalemia (principal); E83.42 Hypomagnesemia; I25.10 Atherosclerotic heart disease of native coronary artery without angina pectoris; E78.00 Pure hypercholesterolemia, unspecified; I10 Essential (primary) hypertension; K21.9 Gastro-esophageal reflux disease without esophagitis; E66.9 Obesity, unspecified; Z68.35 Body mass index [BMI] 35.0-35.9, adult; Z88.8 Allergy status to other drugs, medicaments and biological substances; Z88.0 Allergy status to penicillin; Z88.5 Allergy status to narcotic agent
CPT/HCPCS: 36415; 83735; 84132; 96365; 96366; 99284; A9270; J3480; J3490

== ENCOUNTER 2023-03-10 20:46 | Emergency (ER) | payer MEDICARE, MEDICAID ==
[2023-03-10 22:23] LABS: BASOPHILS ABSOLUTE AUTO 0.06 K/uL (0.00-0.10); BASOPHILS PERCENT AUTO 0.8 % (0.1-1.3); EOSINOPHILS ABSOLUTE AUTO 0.08 K/uL (0.00-0.40); HEMATOCRIT 34.8 % (34.3-46.0); HEMOGLOBIN 11.6 g/dL (11.2-15.5); IMMATURE GRAN PERCENT AUTO 0.1 % (0.0-0.7); LYMPHOCYTES ABSOLUTE AUTO 2.37 K/uL (0.8-3.3); LYMPHOCYTES PERCENT AUTO 30.9 % (11.4-47.7); MEAN CORPUSCULAR HEMOGLOBIN 26.4 pg (31.6-35.5); MEAN CORPUSCULAR HGB CONC 33.3 g/dL (31.6-35.5); MEAN CORPUSCULAR VOLUME 79.3 fL (81.4-99.0); MONOCYTES ABSOLUTE AUTO 0.64 K/uL (0.20-0.90); MONOCYTES PERCENT AUTO 8.3 % (3.3-12.6); NEUTROPHILS ABSOLUTE AUTO 4.51 K/uL (1.0-7.6); NEUTROPHILS PERCENT AUTO 58.9 % (40.0-78.1); PLATELET COUNT,PLT 286 K/uL (130-375); RED BLOOD CELL COUNT 4.39 M/uL (3.77-5.24); WHITE BLOOD CELL COUNT,WBC 7.7 K/uL (3.2-11.0)
[2023-03-10 22:24] LABS: IMMATURE GRAN ABSOLUTE AUTO 0.01 K/uL (0.00-0.23)
[2023-03-10 22:45] LABS: CALCIUM 9.2 mg/dL (8.5-10.1); EST CRCL DRUG DOSING (CG) 66.39 mL/min; POTASSIUM,K 3.4 mmol/L (3.6-5.2)
[2023-03-10 22:48] LABS: ANION GAP 10.4 mmol/L (5.0-14.0)
[2023-03-11 05:41] LABS: APPEARANCE,URINE CLEAR (CLEAR); BILIRUBIN,URINE NEGATIVE (NEGATIVE); COLOR,URINE YELLOW (YELLOW); GLUCOSE,URINE NEGATIVE (NEGATIVE); KETONES,URINE NEGATIVE (NEGATIVE); LEUKOCYTE ESTERASE,URINE NEGATIVE (NEGATIVE); NITRITE,URINE NEGATIVE (NEGATIVE); OCCULT BLOOD,URINE NEGATIVE (NEGATIVE); PH,URINE 5.5 (5.0-8.0); PROTEIN,URINE NEGATIVE (NEGATIVE); UROBILINOGEN,URINE 0.2 EU/dL (0.2-1.0)
[2023-03-11 05:48] LABS: AMPHETAMINES SCREEN, URINE NEGATIVE (NEGATIVE); BARBITURATE SCREEN,URINE NEGATIVE (NEGATIVE); METHAMPHETAMINES SCREEN, URINE NEGATIVE (NEGATIVE)
[2023-03-11 05:49] LABS: AMORPHOUS SEDIMENT,URINE MODERATE; BACTERIA,URINE NOT SEEN; BENZODIAZEPINES SCREEN,URINE PRESUMPTIVE POSITIVE (NEGATIVE); EPITHELIAL CELLS,URINE NOT SEEN; METHADONE SCREEN, URINE NEGATIVE (NEGATIVE); MUCUS,URINE NOT SEEN; OXYCODONE SCREEN,URINE NEGATIVE (NEGATIVE); PROPOXYPHENE SCREEN,URINE NEGATIVE (NEGATIVE); RBC,URINE NOT SEEN (0-5); THC SCREEN,URINE 50 NG/ML NEGATIVE (NEGATIVE); WBC,URINE NOT SEEN (0-5)
== END 2023-03-11 14:45 | disposition other institution (70) ==
LOC: JP.ED 20:46
DX: T40.422A Poisoning by tramadol, intentional self-harm, initial encounter (principal); T42.4X2A Poisoning by benzodiazepines, intentional self-harm, initial encounter; T48.1X2A Poisoning by skeletal muscle relaxants [neuromuscular blocking agents], intentional self-harm, initial encounter; I25.10 Atherosclerotic heart disease of native coronary artery without angina pectoris; E78.00 Pure hypercholesterolemia, unspecified; I10 Essential (primary) hypertension; K21.9 Gastro-esophageal reflux disease without esophagitis; E66.9 Obesity, unspecified; Z88.8 Allergy status to other drugs, medicaments and biological substances; Z88.0 Allergy status to penicillin; Z88.1 Allergy status to other antibiotic agents; Z88.5 Allergy status to narcotic agent; Z79.82 Long term (current) use of aspirin; Z79.899 Other long term (current) drug therapy; Z20.822 Contact with and (suspected) exposure to COVID-19; Z68.36 Body mass index [BMI] 36.0-36.9, adult
CPT/HCPCS: 36415; 80048; 80143; 80179; 80305; 80307; 81001; 81025; 85025; 93005; 99285; U0002; 93010

== ENCOUNTER 2023-10-25 14:50 | Emergency (ER) | payer MEDICARE, MEDICAID ==
[2023-10-25] MEDS: Naloxone 0.4 MG/ML SDV IVPUSH STA (15:35)
[2023-10-25 15:50] LABS: BASOPHILS ABSOLUTE AUTO 0.12 K/uL (0.00-0.10); BASOPHILS PERCENT AUTO 1.3 % (0.1-1.3); EOSINOPHILS PERCENT AUTO 1.1 % (0.0-5.4); HEMATOCRIT 36.9 % (34.3-46.0); HEMOGLOBIN 11.9 g/dL (11.2-15.5); IMMATURE GRAN ABSOLUTE AUTO 0.04 K/uL (0.00-0.23); IMMATURE GRAN PERCENT AUTO 0.4 % (0.0-0.7); LYMPHOCYTES ABSOLUTE AUTO 1.75 K/uL (0.8-3.3); LYMPHOCYTES PERCENT AUTO 19.7 % (11.4-47.7); MEAN CORPUSCULAR HGB CONC 32.2 g/dL (31.6-35.5); MEAN CORPUSCULAR VOLUME 80.7 fL (81.4-99.0); MONOCYTES ABSOLUTE AUTO 0.53 K/uL (0.20-0.90); NEUTROPHILS ABSOLUTE AUTO 6.35 K/uL (1.0-7.6); NEUTROPHILS PERCENT AUTO 71.5 % (40.0-78.1); PLATELET COUNT,PLT 342 K/uL (130-375); RED BLOOD CELL COUNT 4.57 M/uL (3.77-5.24); WHITE BLOOD CELL COUNT,WBC 8.9 K/uL (3.2-11.0)
[2023-10-25] MEDS: Sodium Chloride 0.9% 1,000 ML IV SCH (15:54)
[2023-10-25] MEDS: Sodium Chloride 0.9% 10 ML Syringe FLUSH PRN (15:54)
[2023-10-25 16:10] LABS: A/G RATIO 0.8 (1.2-2.2); ALANINE AMINOTRANSFERASE,ALT 19 U/L (12-78); ALBUMIN 3.2 g/dL (3.4-5.0); ALKALINE PHOSPHATASE 190 U/L (46-116); ANION GAP 8.4 mmol/L (5.0-14.0); ASPARTATE AMNIOTRANSFERASE,AST 18 U/L (15-37); BILIRUBIN TOTAL 0.3 mg/dL (0.2-1.0); BLOOD UREA NITROGEN,BUN 18 mg/dL (7-18); CALCIUM 8.8 mg/dL (8.5-10.1); CARBON DIOXIDE,CO2 29 mmol/L (21-32); CHLORIDE,CL 104 mmol/L (100-108); CREATININE 1.3 mg/dL (0.6-1.0); EST CRCL DRUG DOSING (CG) 50.48 mL/min; ESTIMATED GFR 49 mL/min (>60); GLUCOSE RANDOM 124 mg/dL (74-106); POTASSIUM,K 3.9 mmol/L (3.6-5.2); PROTEIN TOTAL,TP 7.1 g/dL (6.4-8.2); SODIUM,NA 141 mmol/L (140-148)
[2023-10-25] MEDS: propofoL 100 ML IV SCH (17:43)
[2023-10-25] MEDS: Norepinephrine Bit/D5W Premix 4 MG in Premix Bag 1 BAG IV SCH (17:53)
[2023-10-25 18:38] LABS: MAGNESIUM 1.9 mg/dL (1.8-2.4); PHOSPHORUS 3.2 mg/dL (2.5-4.9)
[2023-10-25 18:50] LABS: BASE EXCESS ARTERIAL -1.1 mm/L; BICARBONATE,ARTERIAL 24.5 mmol/L (22.0-26.0); CARBOXYHEMOGLOBIN 1.9 % (0.0-1.6); METHEMOGLOBIN 1.2 %; O2 SATURATION ARTERIAL 96.5 % (95.0-98.0); OXYHEMOGLOBIN 93.5 %; PCO2 ARTERIAL 47.3 mmHg (35.0-42.0); PO2 ARTERIAL 87.8 mmHg (75.0-100.0); TOTAL HEMOGLOBIN 11.8 g/dL (12.0-16.0)
[2023-10-25 19:02] LABS: AMPHETAMINES SCREEN, URINE NEGATIVE (NEGATIVE); BARBITURATE SCREEN,URINE NEGATIVE (NEGATIVE); BENZODIAZEPINES SCREEN,URINE PRESUMPTIVE POSITIVE (NEGATIVE); METHAMPHETAMINES SCREEN, URINE NEGATIVE (NEGATIVE)
[2023-10-25 19:03] LABS: METHADONE SCREEN, URINE NEGATIVE (NEGATIVE); OXYCODONE SCREEN,URINE NEGATIVE (NEGATIVE); PROPOXYPHENE SCREEN,URINE NEGATIVE (NEGATIVE); THC SCREEN,URINE 50 NG/ML NEGATIVE (NEGATIVE)
[2023-10-25] MEDS ORDERED: Sodium Chloride 0.9% 1,000 ML IV SCH (19:15)
[2023-10-25] MEDS: Rocuronium 50 MG/5 ML Vial IVPUSH ONE (19:31)
[2023-10-25] MEDS: Etomidate 2 MG/ML 10 ML SDV IVPUSH ONE (19:31)
[2023-10-25] MEDS: ACETYLCYSTEINE IV ONE (20:20)
[2023-10-25] MEDS: SODIUM CHLORIDE 0.9% IV ONE (20:20)
[2023-10-25] MEDS: Acetylcysteine 30 ML ONE (20:45)
[2023-10-25] MEDS: propofoL 100 ML ONE (20:46)
[2023-10-25] MEDS: Etomidate 2 MG/ML 10 ML SDV ONE (20:46)
[2023-10-25] MEDS: Rocuronium 50 MG/5 ML Vial ONE ×3 (20:49→20:50)
== END 2023-10-25 20:52 ==
LOC: JP.ED 14:50
DX: T39.1X2A Poisoning by 4-Aminophenol derivatives, intentional self-harm, initial encounter (principal); I95.9 Hypotension, unspecified; Z99.11 Dependence on respirator [ventilator] status; I25.10 Atherosclerotic heart disease of native coronary artery without angina pectoris; E78.00 Pure hypercholesterolemia, unspecified; I10 Essential (primary) hypertension; K21.9 Gastro-esophageal reflux disease without esophagitis; E66.9 Obesity, unspecified; Z79.899 Other long term (current) drug therapy; Z88.5 Allergy status to narcotic agent; Z88.8 Allergy status to other drugs, medicaments and biological substances; Z88.0 Allergy status to penicillin; Z88.2 Allergy status to sulfonamides; Z68.37 Body mass index [BMI] 37.0-37.9, adult
CPT/HCPCS: 31500; 36415; 36600; 51702; 71045; 80053; 80143; 80179; 80305; 80307; 82803; 83605; 83735; 84100; 84484; 85025; 85610; 93010; 96361; 96365; 96366; 96368; 96375; 99285; J0132; J2310; J2704; J3490; J7030; J7040

== ENCOUNTER 2024-03-26 12:13 | Emergency (ER) | payer MEDICARE, MEDICAID ==
[2024-03-26] MEDS: Sodium Chloride 0.9% 1,000 ML IV ONE (12:15)
[2024-03-26] MEDS: Naloxone 0.4 MG/ML SDV IVPUSH STA (12:25)
[2024-03-26 12:38] LABS: BASOPHILS ABSOLUTE AUTO 0.08 K/uL (0.00-0.10); BASOPHILS PERCENT AUTO 1.2 % (0.1-1.3); EOSINOPHILS PERCENT AUTO 7.4 % (0.0-5.4); HEMATOCRIT 36.7 % (34.3-46.0); HEMOGLOBIN 12.1 g/dL (11.2-15.5); IMMATURE GRAN PERCENT AUTO 0.1 % (0.0-0.7); LYMPHOCYTES ABSOLUTE AUTO 2.29 K/uL (0.8-3.3); LYMPHOCYTES PERCENT AUTO 33.9 % (11.4-47.7); MEAN CORPUSCULAR HEMOGLOBIN 27.8 pg (31.6-35.5); MEAN CORPUSCULAR VOLUME 84.2 fL (81.4-99.0); MONOCYTES ABSOLUTE AUTO 0.64 K/uL (0.20-0.90); MONOCYTES PERCENT AUTO 9.5 % (3.3-12.6); NEUTROPHILS ABSOLUTE AUTO 3.23 K/uL (1.0-7.6); NEUTROPHILS PERCENT AUTO 47.9 % (40.0-78.1); PLATELET COUNT,PLT 256 K/uL (130-375); RED BLOOD CELL COUNT 4.36 M/uL (3.77-5.24); WHITE BLOOD CELL COUNT,WBC 6.8 K/uL (3.2-11.0)
[2024-03-26 12:41] LABS: BASE EXCESS ARTERIAL 1.2 mm/L; BICARBONATE,ARTERIAL 27.7 mmol/L (22.0-26.0); CARBOXYHEMOGLOBIN 1.4 % (0.0-1.6); IMMATURE GRAN ABSOLUTE AUTO 0.01 K/uL (0.00-0.23); METHEMOGLOBIN 0.7 %; O2 SATURATION ARTERIAL 94.2 % (95.0-98.0); OXYHEMOGLOBIN 92.2 %; PCO2 ARTERIAL 54.9 mmHg (35.0-42.0); PO2 ARTERIAL 75.7 mmHg (75.0-100.0); TOTAL HEMOGLOBIN 12.7 g/dL (12.0-16.0)
[2024-03-26] MEDS: Flumazenil 0.1 MG/ML 5 ML MDV IVPUSH STA ×3 (12:48→14:33)
[2024-03-26 12:52] LABS: A/G RATIO 0.8 (1.2-2.2); ACETAMINOPHEN 16.2 ug/mL (10.0-144.9); ALANINE AMINOTRANSFERASE,ALT 30 U/L (12-78); ALBUMIN 3.1 g/dL (3.4-5.0); ALKALINE PHOSPHATASE 151 U/L (46-116); ANION GAP 8.6 mmol/L (5.0-14.0); ASPARTATE AMNIOTRANSFERASE,AST 22 U/L (15-37); BILIRUBIN TOTAL 0.3 mg/dL (0.2-1.0); BLOOD UREA NITROGEN,BUN 17 mg/dL (7-18); CALCIUM 8.5 mg/dL (8.5-10.1); CARBON DIOXIDE,CO2 28 mmol/L (21-32); CHLORIDE,CL 105 mmol/L (100-108); CREATININE 1.4 mg/dL (0.6-1.0); ESTIMATED GFR 45 mL/min (>60); GLUCOSE RANDOM 89 mg/dL (74-106); POTASSIUM,K 4.1 mmol/L (3.6-5.2); PROTEIN TOTAL,TP 6.8 g/dL (6.4-8.2); SODIUM,NA 142 mmol/L (140-148)
[2024-03-26] MEDS: Naloxone 0.4 MG/ML SDV ONE (12:53)
[2024-03-26 13:50] LABS: AMPHETAMINES SCREEN, URINE NEGATIVE (NEGATIVE); BARBITURATE SCREEN,URINE NEGATIVE (NEGATIVE); BENZODIAZEPINES SCREEN,URINE PRESUMPTIVE POSITIVE (NEGATIVE); METHADONE SCREEN, URINE NEGATIVE (NEGATIVE); METHAMPHETAMINES SCREEN, URINE NEGATIVE (NEGATIVE); OXYCODONE SCREEN,URINE NEGATIVE (NEGATIVE); PROPOXYPHENE SCREEN,URINE NEGATIVE (NEGATIVE); THC SCREEN,URINE 50 NG/ML NEGATIVE (NEGATIVE)
[2024-03-26] MEDS: Sodium Chloride 0.9% 1,000 ML IV SCH ×2 (14:00→15:00)
[2024-03-26] MEDS ORDERED: Propofol 200 MG/20 ML SDV ONE (14:44)
[2024-03-26] MEDS ORDERED: Succinylcholine 200 MG/10 ML MDV ONE (14:44)
[2024-03-26 14:59] LABS: BASE EXCESS ARTERIAL -0.6 mm/L; BICARBONATE,ARTERIAL 24.8 mmol/L (22.0-26.0); CARBOXYHEMOGLOBIN 1.3 % (0.0-1.6); O2 SATURATION ARTERIAL 97.2 % (95.0-98.0); PCO2 ARTERIAL 46.7 mmHg (35.0-42.0); PO2 ARTERIAL 94.9 mmHg (75.0-100.0); TOTAL HEMOGLOBIN 11.2 g/dL (12.0-16.0)
[2024-03-26] MEDS ORDERED: Acetylcysteine 15,000 MG in Dextrose 5% in Water 200 ML IV STA (15:43)
[2024-03-26] MEDS: Acetylcysteine 15,000 MG in Dextrose 5% in Water 200 ML IV ONE (16:22)
[2024-03-26] MEDS ORDERED: propofoL 100 ML IV SCH (17:00)
[2024-03-26] MEDS: propofoL 100 ML ONE (17:45)
[2024-03-26] MEDS: Ondansetron 4 MG/2 ML SDV IVPUSH ONE (17:54)
[2024-03-26 18:00] LABS: BASOPHILS ABSOLUTE AUTO 0.05 K/uL (0.00-0.10); BASOPHILS PERCENT AUTO 0.8 % (0.1-1.3); EOSINOPHILS ABSOLUTE AUTO 0.25 K/uL (0.00-0.40); EOSINOPHILS PERCENT AUTO 3.8 % (0.0-5.4); HEMATOCRIT 37.8 % (34.3-46.0); HEMOGLOBIN 12.6 g/dL (11.2-15.5); IMMATURE GRAN ABSOLUTE AUTO 0.03 K/uL (0.00-0.23); IMMATURE GRAN PERCENT AUTO 0.5 % (0.0-0.7); LYMPHOCYTES ABSOLUTE AUTO 2.75 K/uL (0.8-3.3); LYMPHOCYTES PERCENT AUTO 41.4 % (11.4-47.7); MEAN CORPUSCULAR HEMOGLOBIN 27.9 pg (31.6-35.5); MEAN CORPUSCULAR HGB CONC 33.3 g/dL (31.6-35.5); MEAN CORPUSCULAR VOLUME 83.8 fL (81.4-99.0); MONOCYTES ABSOLUTE AUTO 0.35 K/uL (0.20-0.90); MONOCYTES PERCENT AUTO 5.3 % (3.3-12.6); NEUTROPHILS ABSOLUTE AUTO 3.21 K/uL (1.0-7.6); NEUTROPHILS PERCENT AUTO 48.2 % (40.0-78.1); PLATELET COUNT,PLT 223 K/uL (130-375); RED BLOOD CELL COUNT 4.51 M/uL (3.77-5.24); WHITE BLOOD CELL COUNT,WBC 6.6 K/uL (3.2-11.0)
[2024-03-26 19:22] LABS: BASE EXCESS VENOUS -2.1 mm/L; BICARBONATE,VENOUS 25.2 mmol/L; CARBOXYHEMOGLOBIN 2.2 % (0.0-1.6); METHEMOGLOBIN 0.9 %; O2 SATURATION VENOUS 78.1; OXYHEMOGLOBIN 75.7 %; PCO2 VENOUS 57.1 mm/Hg; PH,VENOUS 7.268 (7.350-7.450); PO2 VENOUS 50.2 mm/Hg; TOTAL HEMOGLOBIN 13.1 g/dL (12.0-16.0)
== END 2024-03-26 21:51 ==
LOC: JP.ED 12:13
DX: T39.1X1A Poisoning by 4-Aminophenol derivatives, accidental (unintentional), initial encounter (principal); R41.82 Altered mental status, unspecified; I10 Essential (primary) hypertension; I25.10 Atherosclerotic heart disease of native coronary artery without angina pectoris; E78.00 Pure hypercholesterolemia, unspecified; E66.9 Obesity, unspecified; Z90.710 Acquired absence of both cervix and uterus; Z68.39 Body mass index [BMI] 39.0-39.9, adult; Z79.899 Other long term (current) drug therapy; Z88.0 Allergy status to penicillin; Z88.1 Allergy status to other antibiotic agents; Z88.2 Allergy status to sulfonamides; Z88.5 Allergy status to narcotic agent; Z88.8 Allergy status to other drugs, medicaments and biological substances
CPT/HCPCS: 31500; 36415; 36600; 51702; 70450; 71045; 80053; 80143; 80179; 80305; 80307; 81025; 82140; 82803; 85025; 93005; 93010; 96361; 96365; 96375; 96376; 99285; J0132; J0330; J2310; J2405; J2704; J3490; J7030; J7060